=== PATIENT | male | born 1990 | race Caucasian/White ===

== ENCOUNTER 2019-09-24 07:25 | Emergency (ER) | payer SELFPAY ==
[2019-09-24 07:29] VITALS: PULSE 100; RESP 18; TEMP 36.6; O2SAT 97; BMI 41.8
--- NOTE | 2019-09-24 07:39 | W.ED.EXTPRO ---
HPI - Extremity Problem General: Chief complaint: General Medical Stated complaint: Rib pain Time Seen by Provider: 09/24/19 07:35 History of Present Illness: Associated symptoms: Deny chest pain or fever(s) Review of Systems General: Reports: 10 or more systems reviewed and unremarkable except in HPI and below Const: Denies: fever or chills Eyes: Denies: change in vision, blurry vision or eye redness Card: Reports: shortness of breath on exertion; Denies: chest pain or shortness of breath when lying down Resp: Reports: shortness of breath, non-productive cough, pain on inspiration and other; Denies: coughing up blood or chest congestion PFS ED PFSH: Social History Smoking and tobacco status: never smoked Physical Exam Narrative: EXAM NARRATIVE: Pt has been having UR symptoms x 3 weeks. He notes nausea and no vomiting. No trauma. Const: COMMON NORMALS: no apparent distress, oriented x3, no limitations and alert GENERAL APPEARANCE: cooperative and comfortable ORIENTATION/CONSCIOUSNESS: Yes awake, Yes oriented to person, Yes oriented to place and Yes oriented to time HENMT: COMMON NORMALS: normocephalic, head/scalp atraumatic, external ears normal, EAC's normal, TM's normal bilaterally and external nose normal HEAD & SCALP: normal to inspection, normocephalic and atraumatic FACE & SINUS: normal facial exam, sinuses nontender and face symmetric NOSE: external nose normal, nares normal and no nasal discharge EXTERNAL EAR: Yes external ears normal EXTERNAL AUDITORY CANAL: EAC's normal TYMPANIC MEMBRANE: TM's normal bilaterally MOUTH: oral and palatal mucosa normal, lip normal and tongue normal THROAT: posterior oropharynx normal, tonsils normal and uvula midline Eye: COMMON NORMALS: PERRL, EOMs intact bilaterally and conjunctivae normal GENERAL EYE: normal appearance of both eyes and normal light reflex EYELID: eyelids normal CONJUNCTIVA: Yes conjunctivae normal PUPIL: Yes PERRL EOM: Yes EOM abnormal DIRECT OPHTHALMOSCOPY: Yes normal light reflex Neck/C-Spine: COMMON NORMALS: full ROM, no lymphadenopathy, supple, no meningeal signs, no JVD and thyroid normal GENERAL: Yes normal visual inspection THYROID: thyroid normal CERVICAL SPINE: Yes cervical ROM normal and Yes normal cervical lordosis Lymph: LYMPHATIC: no lymphadenopathy noted Chest: COMMONS NORMALS: inspection of chest normal and palpation of chest normal OTHER: pain on posterior lower rib area with palpation Chest images (male): 1. Resp: COMMON NORMALS: normal respiratory effort and no retractions AUSCULTATION: diminished lung sounds diffuse Cardio: COMMON NORMALS: no JVD, regular rhythm, S1 normal heart sound, S2 normal heart sound, no gallops, no clicks, no murmurs, no rub and peripheral pulses 2+ throughout RHYTHM: regular rhythm HEART SOUNDS: S1 normal and S2 normal PERIPHERAL PULSES: pulses 2+ throughout GI: COMMON NORMALS: normal to inspection, nondistended, normoactive bowel sounds, soft to palpation, non-tender and no masses PALPATION: Yes soft : COMMON NORMALS: Yes no CVA tenderness BLADDER/KIDNEY EXAM: Yes no CVA tenderness Back/Pelvis: COMMON NORMALS: no CVA tenderness, thoracic and lumbar spine normal to inspection, no thoracic nor lumbar tenderness and thoraco-lumbar ROM normal Extremity: COMMON NORMALS: normal to inspection, full ROM, normal capillary refill, no joint enlargement, no clubbing, cyanosis or edema, no calf tenderness and no pedal edema GENERAL: Yes normal exam except as noted Neuro: COMMON NORMALS: oriented x3, moves all extremities, no focal motor deficits, no sensory deficits noted and gait normal SENSORIUM/ORIENTATION: Yes alert, Yes oriented to person, Yes oriented to place and Yes oriented to time MENINGEAL SIGNS: Yes no meningeal signs Psych: COMMON NORMALS: mental status grossly normal, thought process normal, cooperative, affect normal, speech normal and activity/motor behavior normal SPEECH: Yes normal speech THOUGHT PROCESS: normal thought process Skin: COMMON NORMALS: no rashes or lesions noted, no wounds and skin turgor normal GENERAL SKIN EXAM: no rashes or lesions noted and turgor normal Course ED course: Pt was assessed. CXR ordered and pain medication. Reevaluation(s): Reevaluation #1: Awaiting CXR to be reviewed per radiology. Time: 08:21 Vital Signs: Vital signs: Vital Signs Temperature 98 F 09/24/19 07:29 Pulse Rate 100 09/24/19 07:29 Respiratory Rate 18 09/24/19 07:29 Pulse Oximetry 97 09/24/19 07:29 MDM - Extremity (Nontraumatic) Imaging Data^: Other Xray: My impression: No acute findings Discharge Plan Discharge Patient Disposition: Home, Self-Care Clinical Impression: Acute costochondritis, Bronchitis Condition: Stable Prescriptions: New cyclobenzaprine 10 mg tablet 10 mg PO Q8H Qty: 10 RF: 0 Zithromax Z-Axel 250 mg tablet See Rx Instructions .ROUTE .COMPLEX Qty: 6 RF: 0 Medrol (Axel) 4 mg tablets,dose pack See Rx Instructions .ROUTE .COMPLEX Qty: 21 RF: 0 Referrals: [facility] [Other] Joe Lane MD [Family Provider] - Discharge Diet: Usual diet Discharge Activity: Resume usual activity Activity Restrictions/Additional Instructions: May advance activity as tolerated. Deep breaths every hour to help prevent pneumonia. Splint with pillow when coughing. 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
--- NOTE | 2019-09-24 07:49 | XRR_ITS ---
PROCEDURE INFORMATION: Exam: XR Chest, 2 Views Exam date and time: 09/24/2019 8:11 AM Age: 29 years old Clinical indication: Other: Rib pain TECHNIQUE: Imaging protocol: XR of the chest Views: 2 views. COMPARISON: No relevant prior studies available. FINDINGS: Lungs: Unremarkable. No consolidation. Pleural space: Unremarkable. No pleural effusion. No pneumothorax. Heart/Mediastinum: Unremarkable. No cardiomegaly. Bones/joints: No evidence of displaced rib fracture upon limited evaluation. XR/XR chest 2V* [id number] IMPRESSION: No acute findings.
[2019-09-24] MEDS: HYDROcodone-acetaminophen 5-325 mg Tablet 1 TAB PO (08:00)
[2019-09-24] MEDS: orphenadrine 30 mg/mL Inj 2 mL 60 MG IM (08:01)
[2019-09-24] MEDS: ketorolac 30 mg/mL INJ IM (08:01)
--- NOTE | 2019-09-24 08:06 | PC.NURSE ---
Pt ambulated to XR with in flight technician.
--- NOTE | 2019-09-24 08:10 | PC.NURSE ---
Pt returned from xray
== END 2019-09-24 08:39 | disposition home or self-care (01) ==
LOC: ER 08:20
PROVIDERS: Emergency Provider Nurse Practitioner Family; Family Provider Family Medicine
DX: M94.0 Chondrocostal junction syndrome [Tietze] (principal); J40 Bronchitis, not specified as acute or chronic
CPT/HCPCS: 71046; 96372; 99281; 99283; J1885; J2360

== ENCOUNTER 2022-08-28 08:11 | Emergency (ER) | payer MEDICAID, SELFPAY ==
[2022-08-28] VITALS (8 sets, daily range): BP systolic 185–234; BP diastolic 105–143; PULSE 94; RESP 19; TEMP 36.4; O2SAT 93–97; BMI 48.8
--- NOTE | 2022-08-28 08:23 | W.ED.ABDPA2 ---
HPI - Abdominal Pain General: Chief Complaint: Urogenital-Male Stated Complaint: Abd pain, N/V Time Seen by Provider: 08/28/22 08:13 Source: patient Mode of arrival: ambulatory History of Present Illness: 32-year-old male presents emergency room right flank pain dysuria for the last 3 days. He has been taking Aleve and ibuprofen with minimal relief. Refers more of his pain to the right upper quadrant. No vomiting or diarrhea. MD elicited complaint: abdominal pain Onset (ago): day(s) (1) Pain Consistency: constant Location: RUQ Severity: moderate Quality: cramping Radiation: other (Right groin) Exacerbating factors: nothing Relieving factors: nothing Associated Symptoms: Reports dysuria; Denies anorexia, belching, bloating, change in bowel habits, chills, coffee ground emesis, constipation, GI cramping, diarrhea, dyspepsia, excessive flatus, fever(s), heartburn, hematochezia, hematuria, hematemesis, fecal incontinence, loose stools, melena, nausea, poor appetite, syncope and vomiting Review of Systems Const: Denies: fever(s) or chills ENMT: Denies: throat pain, ear or mastoid pain, nasal discharge or nasal congestion Card: Denies: chest pain, palpitations, irregular heart rhythm or syncope Resp: Denies: dyspnea, productive cough or non-productive cough GI: Reports: abdominal pain; Denies: nausea, vomiting, hematemesis, coffee ground emesis, heartburn, diarrhea, constipation, bloating, GI cramping, belching, excessive flatus, fecal incontinence, change in bowel habits, hematochezia or melena : Reports: flank pain, dysuria and urinary frequency; Denies: urinary urgency or hematuria Skin/Breast: Denies: rash or pruritus PFSH ED PFSH: Medical History Asthma Surgical History No pertinent past surgical history Social History Smoking and tobacco status: never smoked Physical Exam Const: GENERAL APPEARANCE: cooperative and comfortable ORIENTATION/CONSCIOUSNESS: Yes awake, Yes oriented to person, Yes oriented to place and Yes oriented to time HENMT: COMMON NORMALS: normocephalic, atraumatic and hearing grossly normal bilaterally HEAD & SCALP: normocephalic and atraumatic Resp: COMMON NORMALS: normal respiratory effort, No retractions, No use of accessory muscles and clear to auscultation bilaterally AUSCULTATION: clear to auscultation bilaterally Cardio: COMMON NORMALS: regular rate, regular rhythm and No murmurs present (Cardio) RATE: regular rate RHYTHM: regular rhythm GI: COMMON NORMALS: No hepatosplenomegaly present AUSCULTATION: Yes normoactive bowel sounds PALPATION: Yes Tenderness to palpation present (GI) Details: RUQ, No Guarding due to palpation present (GI) and Yes No hepatosplenomegaly present : COMMON NORMALS: Yes no CVA tenderness BLADDER/KIDNEY EXAM: Yes no CVA tenderness Back/Pelvis: COMMON NORMALS: no CVA tenderness Extremity: COMMON NORMALS: normal to inspection, capillary refill normal, no clubbing, cyanosis or edema, no calf tenderness and no pedal edema Neuro: SENSORIUM/ORIENTATION: Yes oriented to person, Yes oriented to place and Yes oriented to time Skin: COMMON NORMALS: no rashes or lesions noted GENERAL SKIN EXAM: no rashes or lesions noted Course Vital Signs: Vital signs: Vital Signs Temperature 97.6 F 08/28/22 08:31 Pulse Rate 94 08/28/22 08:23 Respiratory Rate 19 H 08/28/22 08:23 Blood Pressure 185/124 08/28/22 10:30 Pulse Oximetry 97 08/28/22 11:30 Oxygen Delivery Me thod 08/28/22 09:18 MDM - Abdominal Pain Medical Decision Making CT shows right nephrolithiasis 3 mm at the UVJ. Patient likely will be able to pass his follow-up and strain his urine he also appears to have mild bladder infection with an elevated white count. His pain is well controlled this time we will discharge him home on oral antibiotics Flomax antiemetics and pain medications. Recheck with Dr. Mtz next week. He has a mild elevation of his creatinine he was given fluids here. His pain is well controlled at this point we will have him return to the emergency room if he has any worsening or change in symptoms or develops fever. He will need a follow-up creatinine at the time of follow-up. Case management will make arrangements for him to see Dr. Mtz. Also encourage patient to strain urine to catch stone. Medical Records I reviewed the patient's medical records. Lab Data I reviewed the patient's lab results. 08/28/22 08:30 08/28/22 08:30 Labs/Radiology: Radiology Impressions Abdomen/Pelvis CT 08/28/22 08:50 IMPRESSION: 3 mm stone noted at the right ureterovesical junction. Mild hydroureter/hydronephrosis. Mild perinephric/periureteral fat stranding. COMMENTS: Evaluation of solid organs and vascular structures is limited as no IV contrast was administered. Laboratory Results WBC 19.2 10^3/uL (4.0-10.0) H 08/28/22 08:30 RBC 5.38 10^6/uL (4.1-5.3) H 08/28/22 08:30 Hgb 14.3 g/dL (11.7-16.6) 08/28/22 08:30 Hct 45.5 % (42.0-52.0) 08/28/22 08:30 MCV 84.6 fl (80-94) 08/28/22 08:30 MCH 26.6 pg (28.0-34.0) L 08/28/22 08:30 MCHC 31.4 g/dL (30.0-36.0) 08/28/22 08:30 RDW 13.1 % (12.1-15.1) 08/28/22 08:30 Plt Count 373 10^3/cmm (130-400) 08/28/22 08:30 MPV 9.0 fL (7.4-10.4) 08/28/22 08:30 Neut % (Auto) 82.9 % 08/28/22 08:30 Lymph % (Auto) 7.8 % 08/28/22 08:30 Ocean % (Auto) 7.9 % 08/28/22 08:30 Eos % (Auto) 0.1 % 08/28/22 08:30 Baso % (Auto) 0.8 % 08/28/22 08:30 Neut # (Auto) 15.91 10^3/uL (1.8-7.7) H 08/28/22 08:30 Lymph # (Auto) 1.5 10^3/uL (0.8-4.8) 08/28/22 08:30 Ocean # (Auto) 1.5 10^3/uL (0.2-0.9) H 08/28/22 08:30 Eos # (Auto) 0.0 10^3/uL (0.0-0.8) 08/28/22 08:30 Baso # (Auto) 0.2 10^3/uL (0.0-0.1) H 08/28/22 08:30 Nucleated RBC % (auto) 0 % 08/28/22 08:30 Nucleated RBCs # 0.0 /100WBC 08/28/22 08:30 Sodium 137 mmol/L (136-145) 08/28/22 08:30 Potassium 4.8 mmol/L (3.5-5.1) 08/28/22 08:30 Chloride 101 mmol/L (98-107) 08/28/22 08:30 Carbon Dioxide 26 mmol/L (22-29) 08/28/22 08:30 Anion Gap 14.8 (5-19) 08/28/22 08:30 BUN 16 mg/dL (6-20) 08/28/22 08:30 Creatinine 1.8 mg/dL (0.7-1.2) H 08/28/22 08:30 GFR Calculation 43.9 mL/min (90-130) L 08/28/22 08:30 Glucose 129 mg/dL (65-115) H 08/28/22 08:30 Calculated Osmolality 287 mOsm/kg (285-295) 08/28/22 08:30 Calcium 9.5 mg/dL (8.5-10.5) 08/28/22 08:30 Total Bilirubin 0.5 mg/dL (0.15-1.2) 08/28/22 08:30 AST 44 U/L (0-40) H 08/28/22 08:30 ALT 66 U/L (0-41) H 08/28/22 08:30 Alkaline Phosphatase 92 U/L (40-130) 08/28/22 08:30 Total Protein 7.8 g/dL (6.6-8.7) 08/28/22 08:30 Albumin 4.4 g/dL (3.5-5.2) 08/28/22 08:30 Globulin 3.4 g/dL (1.3-4.6) 08/28/22 08:30 Lipase 20 U/L (13-60) 08/28/22 08:30 Urine Color Yellow (Yellow) 08/28/22 08:17 Urine Appearance Clear (CLEAR) 08/28/22 08:17 Urine pH 6 (5-7) 08/28/22 08:17 Ur Specific [place] 1.002 (1.005-1.030) L 08/28/22 08:17 Urine Protein Neg (Negative) 08/28/22 08:17 Urine Glucose (UA) Norm (Normal) 08/28/22 08:17 Urine Ketones Negative (Negative) 08/28/22 08:17 Urine Blood 2+ (Negative) H 08/28/22 08:17 Urine Nitrate Negative (Negative) 08/28/22 08:17 Urine Bilirubin Neg (Negative) 08/28/22 08:17 Urine Urobilinogen Neg mg/dL (Negative) 08/28/22 08:17 Ur Leukocyte Esterase Negative (Negative) 08/28/22 08:17 Urine RBC 5-10 /hpf (0-2) H 08/28/22 08:17 Urine WBC None /hpf (0-5) 08/28/22 08:17 Ur Squamous Epith Cells None /hpf (0-5) 08/28/22 08:17 Amorphous Sediment Not Reportable 08/28/22 08:17 Urine Bacteria None /hpf (NONE) 08/28/22 08:17 Discharge Plan Discharge Patient Disposition: Home Clinical Impression: Right nephrolithiasis, Cystitis, Elevated serum creatinine Condition: Stable Prescriptions: New hydrocodone-acetaminophen 5-325 mg tablet 1 tab PO Q6H PRN (Reason: pain) Qty: 25 0RF Flomax 0.4 mg capsule 0.4 mg PO DAILY Qty: 20 0RF ondansetron HCl 4 mg tablet 4 mg PO Q6H PRN (Reason: nausea and vomiting) Qty: 20 0RF Cipro 500 mg tablet 500 mg PO BID Qty: 14 0RF No Action albuterol sulfate [ProAir HFA] 90 mcg/actuation HFA aerosol inhaler 2 puff inhalation Q6H PRN (Reason: shortness of breath or wheezing) Qty: 8.5 0RF multivitamin Tablet 1 tab PO DAILY ibuprofen 200 mg Tablet 400 mg PO Q6H PRN (Reason: Pain) Discharge Orders: Discharge ED (Routine); Ordered 08/28/22 Ordered By: Bryan Kebede Discharge Diet: Usual diet Discharge Activity: Increase activity as tolerated Patient Instructions: Opioid Safety, Pain Management Activity Restrictions/Additional Instructions: You were seen today for a kidney stone. You should strain your urine to catch the stone it is at the verge of falling in the bladder and likely will pass on its own. You also had a mild bladder infection for which you were given an antibiotic. Finally there is a slight increase in your kidney function. This will need to be rechecked in next week either with your urologist or your primary care doctor. If you have significant worsening of pain return to the emergency room. You should not take any anti-inflammatory such as Aleve ibuprofen Motrin or aspirin. 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
[2022-08-28 08:42] LABS: Add Urine Microscopic? YES; Bilirubin Urine Neg (Negative); Blood Urine 2+ (Negative); Glucose Urine UA Norm (Normal); Ketones Urine Negative (Negative); Leukocyte Esterase Urine Negative (Negative); Nitrate Urine Negative (Negative); Protein Urine Neg (Negative); Specific Gravity, Urine 1.002 (1.005-1.030); Urine Appearance Clear (CLEAR); Urine Color Yellow (Yellow); Urobilinogen Urine Neg (Negative); pH Urine 6 (5-7)
[2022-08-28 08:50] LABS: Basophils # 0.2 10^3/uL (0.0-0.1); Basophils % 0.8 %; Eosinophils % 0.1 %; Hematocrit 45.5 % (42.0-52.0); Hemoglobin 14.3 g/dL (11.7-16.6); Lymphocytes # 1.5 10^3/uL (0.8-4.8); Lymphocytes % 7.8 %; Mean Corpuscular HGB Conc 31.4 g/dL (30.0-36.0); Mean Corpuscular Hemoglobin 26.6 pg (28.0-34.0); Mean Corpuscular Volume 84.6 fl (80-94); Monocytes # 1.5 10^3/uL (0.2-0.9); Monocytes % 7.9 %; Neutrophils # 15.91 10^3/uL (1.8-7.7); Neutrophils % 82.9 %; Nucleated Red Blood Cells % 0 %; Platelet Count 373 10^3/cmm (130-400); Red Blood Count 5.38 10^6/uL (4.1-5.3); Red Cell Distribution Width 13.1 % (12.1-15.1); White Blood Count 19.2 10^3/uL (4.0-10.0)
--- NOTE | 2022-08-28 08:50 | CTR_ITS ---
PROCEDURE INFORMATION: Exam: CT Abdomen And Pelvis Without Contrast Exam date and time: 08/28/2022 8:59 AM Age: 32 years old Clinical indication: Abdominal pain; Flank; Right; Prior surgery; Surgery type: Gb; Additional info: Flank pain TECHNIQUE: Imaging protocol: Computed tomography of the abdomen and pelvis without contrast. Radiation optimization: All CT scans at this facility use at least one of these dose optimization techniques: automated exposure control; mA and/or kV adjustment per patient size (includes targeted exams where dose is matched to clinical indication); or iterative reconstruction. Other protocol: This patient has received 0 known CTs and 0 known cardiac nuclear medicine studies in the 12 months prior to the current study. COMPARISON: CT abdomen pelvis w con* [id number] 09/01/2018 6:54 AM RADIATION DOSE METRICS: Total DLP (mGy-cm): 4.73 FINDINGS: Liver: The liver is normal in size and contour. Gallbladder and bile ducts: The gallbladder is surgically absent. Pancreas: The pancreas appears normal. Spleen: The spleen appears normal. Adrenal glands: The adrenals appear normal. Kidneys and ureters: 3 mm stone noted at the right ureterovesical junction. Mild hydroureter/hydronephrosis. Mild perinephric/periureteral fat stranding. No additional nephrolithiasis. Stomach and bowel: The stomach is unremarkable. The small bowel loops are not abnormally dilated. The large bowel loops are not abnormally dilated. Appendix: The appendix appears normal. Intraperitoneal space: No ascites or significant fluid collection. Vasculature: The aorta is nonaneurysmal. The IVC appears normal. Lymph nodes: There are no enlarged lymph nodes. Urinary bladder: The bladder is distended and demonstrates no focal contour abnormality. Reproductive: Unremarkable as visualized. Bones/joints: Unremarkable. Soft tissues: Small umbilical and periumbilical fat containing hernias. CT/CT kidney stone [id number] IMPRESSION: 3 mm stone noted at the right ureterovesical junction. Mild hydroureter/hydronephrosis. Mild perinephric/periureteral fat stranding. COMMENTS: Evaluation of solid organs and vascular structures is limited as no IV contrast was administered.
[2022-08-28 09:04] LABS: Add Urine Culture? No
[2022-08-28 09:09] LABS: Alanine Aminotransferase 66 U/L (0-41); Albumin Level 4.4 g/dL (3.5-5.2); Alkaline Phosphatase 92 U/L (40-130); Anion Gap 14.8 (5-19); Aspartate Amino Transferase 44 U/L (0-40); Blood Urea Nitrogen 16 mg/dL (6-20); Calcium 9.5 mg/dL (8.5-10.5); Carbon Dioxide 26 mmol/L (22-29); Chloride 101 mmol/L (98-107); Globulin 3.4 g/dL (1.3-4.6); Glomerular Filtration Rate 43.9 mL/min (90-130); Glucose 129 mg/dL (65-115); Lipase 20 U/L (13-60); Osmolality Calculated 287 mOsm/kg (285-295); Potassium 4.8 mmol/L (3.5-5.1); Sodium 137 mmol/L (136-145); Total Bilirubin 0.5 mg/dL (0.15-1.2); Total Protein 7.8 g/dL (6.6-8.7)
[2022-08-28] MEDS: sodium chloride 0.9% 1,000 ML 999 ML IV ×2 (09:10→10:30)
[2022-08-28] MEDS: ondansetron 2 mg/ML SDV 2 mL 4 MG IVP (09:34)
[2022-08-28] MEDS: morphine 4 mg/mL SDV 1 mL IVP (09:35)
[2022-08-28] MEDS: hyDRALAzine 20 mg/mL INJ 1 mL IVP (10:02)
--- NOTE | 2022-08-28 12:07 | DCPLANNER ---
Addendum entered by Marianela Leon 09/01/22 14:04: late entry - insurance account manager received the following message from the urology clinic regarding follow up appointment: Please send elsewhere. insurance account manager called patient at [phone] unable to speak with patient at this time, and unable to leave a voicemail. Patients phone is not accepting messages at this time. insurance account manager would call and give the information to patients primary care, but patients chart does not list a primary care physician. Original Note: insurance account manager had a message to schedule a follow up appointment for patient with urology. insurance account manager sent patients information to the front office staff at urology. Patients information will be printed and reviewed. Clinic will call patient with appointment information.
== END 2022-08-28 11:42 | disposition home or self-care (01) ==
PROVIDERS: Emergency Provider Family Medicine
DX: N13.2 Hydronephrosis with renal and ureteral calculous obstruction (principal); N30.90 Cystitis, unspecified without hematuria; R74.8 Abnormal levels of other serum enzymes
CPT/HCPCS: 74176; 80053; 81001; 83690; 85025; 96361; 96374; 96375; 99285; J0360; J2270; J2405; J7030

== ENCOUNTER 2023-02-18 19:37 | Emergency (ER) | payer MEDICAID, SELFPAY ==
[2023-02-18 19:49] VITALS: PULSE 113; RESP 18; TEMP 36.6; O2SAT 95; BMI 54.2
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
[2023-02-18 21:12] VITALS: RESP 16
[2023-02-18] MEDS: ondansetron 4 MG Tablet PO (21:12)
[2023-02-18] MEDS: morphine 4 mg/mL SDV 1 mL IM (21:12)
[2023-02-18] MEDS: neomycin-poly-bacitracin oint 28 gm 1 APPLIC TOPICAL (21:30)
[2023-02-18] MEDS: tetanus-dipt-pertussis 0.5 mL SDV IM (21:30)
[2023-02-18 22:04] VITALS: RESP 16
== END 2023-02-18 22:05 | disposition home or self-care (01) ==
PROVIDERS: Emergency Provider Nurse Practitioner Family
DX: T23.251A Burn of second degree of right palm, initial encounter (principal); Z23 Encounter for immunization; X15.0XXA Contact with hot stove (kitchen), initial encounter
CPT/HCPCS: 16020; 90715; 96372; 99284; J2270; Q0162

== ENCOUNTER → 2023-05-19 09:16 | Outpatient (BNVA) | payer MEDICAID, SELFPAY | PROVIDERS: Visit Provider Family Medicine | DX: E66.01 Morbid (severe) obesity due to excess calories (principal); Z68.43 Body mass index [BMI] 50.0-59.9, adult; R03.0 Elevated blood-pressure reading, without diagnosis of hypertension; J45.40 Moderate persistent asthma, uncomplicated; K58.9 Irritable bowel syndrome, unspecified; H91.90 Unspecified hearing loss, unspecified ear | CPT/HCPCS: 80053; 80061; 83036; 84439; 84443; 85025 ==

== ENCOUNTER → 2024-10-02 09:39 | Outpatient (BNVA) | payer MEDICAID, SELFPAY | PROVIDERS: PCP Family Medicine; Visit Provider Family Medicine | DX: I10 Essential (primary) hypertension (principal); R73.03 Prediabetes; E66.01 Morbid (severe) obesity due to excess calories; Z68.43 Body mass index [BMI] 50.0-59.9, adult | CPT/HCPCS: 80053; 80061; 83036; 85025 ==